=== PATIENT | female | born 1980 | race Caucasian/White ===

== ENCOUNTER 2016-09-10 13:54 | Inpatient (IN) | payer BC ==
[~2016-09-10 13:54] MED LIST: FOLIC ACID0.4 MG PO; IBUPROFEN800 MG PO; LAMICTAL100 MG PO; MONTELUKAST SOD10 M1; PRENATAL VITAMI1 TAB
[2016-09-10] MEDS ORDERED: FOLIC ACID1 M1 PO (14:36)
[2016-09-10] MEDS ORDERED: VISTARIL25 M1 PO (14:36)
[2016-09-11] MEDS ORDERED: IBUPROFEN800 M1 PO (11:40)
[2016-09-11] MEDS ORDERED: NORCO 5-325 TA1 EACH PO (11:41)
[2016-09-11] MEDS ORDERED: COLACE100 M1 PO (11:44)
== END 2016-09-11 16:15 | DRG 775 ==
LOC: LDR 13:54 → OBGD 17:40
PROVIDERS: ADMIT Advanced Practice Midwife
PROC: 10E0XZZ Delivery of Products of Conception, External Approach (ICD-10-PCS; principal; 2016-09-10)
PROC: 0HQ9XZZ Repair Perineum Skin, External Approach (ICD-10-PCS; 2016-09-10)
DX: O48.0 Post-term pregnancy (principal); J30.89 Other allergic rhinitis; Z37.0 Single live birth; Z3A.40 40 weeks gestation of pregnancy; O70.0 First degree perineal laceration during delivery